=== PATIENT | female | born 1995 | race Hispanic/Latino ===

== ENCOUNTER 2023-06-29 05:51 | Day surgery (SDC) | payer BC ==
[2023-06-25 14:29] LABS: BASOPHILS # (AUTO) 0.06 K/uL (0.00-0.20); BASOPHILS % (AUTO) 1.3 % (0.0-5.0); EOSINOPHILS # (AUTO) 0.46 K/uL (0.00-0.70); HEMATOCRIT 38.9 % (36-48); IMMATURE GRANULOCYTE ABSOLUTE 0.01 K/uL (0-1); LYMPHOCYTES # (AUTO) 1.6 K/uL (1.0-4.8); LYMPHOCYTES % (AUTO) 34.4 % (21.0-51.0); MEAN CORPUSCULAR HEMOGLOBIN 26.6 pg (27.0-33.0); MEAN CORPUSCULAR HGB CONC 33.7 g/dL (32.0-36.0); MEAN CORPUSCULAR VOLUME 79.1 fL (79-99); MONOCYTES # (AUTO) 0.4 K/uL (0.1-1.0); MONOCYTES % (AUTO) 8.1 % (3.0-13.0); NEUTROPHILS # (AUTO) 2.1 K/uL (1.8-7.7); PLATELET COUNT (AUTO) 265 K/uL (130-400); RED BLOOD CELL COUNT(AUTO) 4.92 MIL/uL (4.00-5.50); RED CELL DISTRIBUTION WIDTH 14.4 % (11.0-15.5); WHITE BLOOD COUNT (AUTO) 4.6 K/uL (4.8-10.8)
[2023-06-25 14:47] LABS: ALBUMIN 3.6 g/dL (3.5-5.0); BILIRUBIN,TOTAL 0.4 mg/dL (0.2-1.0); CREATININE 0.7 mg/dL (0.5-1.5); POTASSIUM 3.5 mmol/L (3.5-5.1); TOTAL PROTEIN, SERUM 7.4 g/dL (6.0-8.3)
[2023-06-28 09:45] VITALS: BP 164/77; PULSE 74; RESP 18
[~2023-06-29] VITALS: Ht 162.6 cm; Wt 136.4 kg
[2023-06-29] VITALS (17 sets, daily range): BP systolic 126–154; BP diastolic 67–94; PULSE 81–98; RESP 10–20
[~2023-06-29 05:51] MED LIST: DICY-20 PO; LABE100T7 PO
[2023-06-29] MEDS ORDERED: LACTATED RINGERS 1000ML 1,000 ML IV ONE (06:22)
[2023-06-29] MEDS ORDERED: CEFAZOLIN SODIUM 1 GM VIAL ONE (06:22)
[2023-06-29] MEDS ORDERED: IOHEXOL-350 50ML VIAL IV ONE (07:27)
[2023-06-29] MEDS ORDERED: LIDOCAINE PF 100MG/5ML (2%) SYRINGE 5ML ONE (07:28)
[2023-06-29] MEDS ORDERED: FENTANYL CITRATE PF 50 MCG/1 ML 2ML VIAL ONE ×2 (07:29→08:11)
[2023-06-29] MEDS ORDERED: PROPOFOL 10 MG/ML 20ML VIAL IV ONE (07:29)
[2023-06-29] MEDS ORDERED: MIDAZOLAM HCL 1 MG/ML 2ML VIAL ONE (07:29)
[2023-06-29] MEDS ORDERED: ROCURONIUM 10MG/1ML SYR 10 MG/ML ML ONE (07:29)
[2023-06-29] MEDS ORDERED: GLYCOPYRROLATE 1 MG/5 ML SYRINGE ONE (07:32)
[2023-06-29] MEDS ORDERED: NEOSTIGMINE METHYLSULFATE 1MG/ML IV ONE (07:32)
[2023-06-29] MEDS ORDERED: PHENYLEPHRINE HCL 10 MG/ML 1ML VIAL IV ONE (07:32)
[2023-06-29] MEDS ORDERED: CEFAZOLIN SODIUM 3 GM VIAL IVPB ONE (07:59)
[2023-06-29] MEDS ORDERED: ONDANSETRON 4MG INJ ONE ×2 (08:12→10:07)
[2023-06-29] MEDS ORDERED: DEXAMETHASONE SOD PHOSPHATE 10MG/ML 1ML VIAL ONE ×2 (08:12→09:06)
[2023-06-29] MEDS ORDERED: ROPIVACAINE 0.5% 5MG/ML 30ML ONE (08:42)
[2023-06-29] MEDS ORDERED: KETOROLAC 30MG VIAL (30MG/ML) ONE (09:34)
[2023-06-29] MEDS ORDERED: MEPERIDINE-PF 25 MG/ML SYG ONE ×2 (10:07→10:22)
== END 2023-06-29 11:35 | disposition home or self-care (01) ==
LOC: DAH 05:51
PROVIDERS: ATTEND Surgery
DX: K81.1 Chronic cholecystitis (principal); K82.8 Other specified diseases of gallbladder; I10 Essential (primary) hypertension; E66.01 Morbid (severe) obesity due to excess calories; Z79.899 Other long term (current) drug therapy; Z90.89 Acquired absence of other organs; Z68.42 Body mass index [BMI] 45.0-49.9, adult
CPT/HCPCS: 80053; 84703; 85025; 86850 ×2; 86900 ×2; 86901 ×2; 36415 ×2; 93005; 64488; 47563; 81025; 88304; 74300; A6260; A4663; J7030; A4215 ×3; C1758; J0690 ×2; J7120; J3010 ×2; J3490; J1100 ×2; J2001; J2250; J2704; J2405 ×2; J1885; J2710; J2175 ×2; J2795; J2371; Q9967; G0168; A4649 ×2; A4221